=== PATIENT | male | born 1980 | race Caucasian/White ===

== ENCOUNTER 2016-12-03 17:51 | Emergency (ER) | payer BC, MEDICAID ==
[2016-12-03 18:26] LABS: URINE APPEARANCE CLEAR; URINE BILIRUBIN NEGATIVE (NEGATIVE); URINE BLOOD NEGATIVE (NEGATIVE); URINE COLOR YELLOW; URINE GLUCOSE (UA) NEGATIVE (NEGATIVE); URINE KETONE NEGATIVE (NEGATIVE); URINE LEUKOCYTE ESTERASE NEGATIVE (NEGATIVE); URINE NITRITE NEGATIVE (NEGATIVE); URINE PROTEIN NEGATIVE (NEGATIVE); URINE UROBILINOGEN 0.2 E.U./dL (0.20 - 1.00)
--- NOTE | 2016-12-03 18:43 | Emergency Department Record ---
History of Present Illness - General Chief Complaint: Fever Stated Complaint: FEVER,HAD AN INFECTION Time Seen by Provider: 12/03/16 18:03 Source: Patient Mode of Arrival: Ambulatory Limitations: No limitations - History of Present Illness Initial Comments: 36 yo male presents to ED with a CC of fever 102 this morning. Patient and family report a recent admission and treatment for "staph in nel urine" several days ago following an ICU stay at [facility] from 11/04/17-11/16/16. Patient was seen at [facility] originally for epilepsy, and underwent a sleep study that resulted in worsening of his seizures, intubation for several days. Patient reports body aches and headache symptoms, denies neck pain or stiffness, denies dysuria symptoms. Patient does report non-productive cough symptoms as well as "redness to the right eye". MD Complaint: Fever Onset/Timin -: Month(s) Maximum Temperature: 102.4 F Temperature Source: Oral Context: Other Associated Symptoms: Denies other symptoms Treatments Prior to Arrival: Other Treatment Prior to Arrival Comment:: Percocet at 1100 today - Related Data Home Medications Medication Instructions Recorded Confirmed Last Taken Divalproex Sodium [Depakote] 1,500 mg PO BID 10/18/15 12/03/16 12/03/16 Lisinopril 20 mg PO DAILY 10/18/15 12/03/16 12/03/16 Oxycodone HCl/Acetaminophen 10 mg PO Q4H 03/14/16 12/03/16 12/03/16 [Percocet 10mg/325mg] Cephalexin [Cephalexin] 500 mg PO QID 12/03/16 12/03/16 12/03/16 Lorazepam [Lorazepam] 1 mg PO ASDIR 12/03/16 12/03/16 12/03/16 Oxcarbazepine [Oxcarbazepine] 600 mg PO ASDIR 12/03/16 12/03/16 12/03/16 Quetiapine Fumarate [Quetiapine 50 mg PO ASDIR 12/03/16 12/03/16 12/03/16 Fumarate] Previous Rx's Medication Instructions Recorded Amoxicillin/Potassium Clav 2 tab PO BID #40 tab 12/03/16 [Augmentin 500Mg/125Mg] Doxycycline Hyclate [Doxycycline] 100 mg PO BID #20 cap 12/03/16 Allergies Allergy/AdvReac Type Severity Reaction Status Date / Time shrimp Allergy ANAPHYLAXIS Verified 12/03/16 18:07 Travel Screening - Travel/Exposure Within Last 30 Days Have you traveled within the last 30 days?: No - Travel/Exposure Within Last Year Have you traveled outside the [place] in the last year?: No - Additonal Travel Details Have you been exposed to anyone with a communicable illness?: No - Travel Symptoms Symptom Screening: None Review of Systems Constitutional: Reports: Fever, Malaise. Denies: Chills, Night sweats Eyes: Reports: Other (redness to the lateral aspect of the right eye). Denies: Eye discharge, Eye pain ENT: Denies: Congestion, Ear pain, Epistaxis Respiratory: Reports: Cough. Denies: Dyspnea Cardiovascular: Denies: Chest pain, Dyspnea on exertion Endocrine: Reports: Fatigue. Denies: Heat or cold intolerance Gastrointestinal: Denies: Abdominal pain, Nausea, Vomiting Genitourinary: Denies: Dysuria, Incontinence, Retention Musculoskeletal: Reports: Myalgia. Denies: Arthralgia, Back pain, Gout, Joint swelling Skin: Denies: Bruising, Change in color, Change in hair/nails Neurological: Reports: Headache. Denies: Abnormal gait, Confusion, Tingling, Tremors Psychiatric: Denies: Anxiety Hematological/Lymphatic: Denies: Anemia, Blood Clots Past Medical History - SOCIAL HISTORY Smoking Status: Current every day smoker Alcohol Use: None Drug Use: None - RESPIRATORY Hx Respiratory Disorders: No - CARDIOVASCULAR Hx Cardio Disorders: No - NEURO Hx Neuro Disorders: Yes Hx Brain Tumor: Yes Hx Seizures: Yes - GI Hx GI Disorders: No - Hx Genitourinary Disorders: No - ENDOCRINE Hx Endocrine Disorders: No - MUSCULOSKELETAL Hx Musculoskeletal Disorders: Yes Hx Back Injury: Yes - PSYCH Hx Psych Problems: Yes Hx Anxiety: Yes Hx Depression: Yes - HEMATOLOGY/ONCOLOGY Hx Hematology/Oncology Disorders: No Family Medical History Any Significant Family History?: Yes Hx Cancer: Grandparents Hx Diabetes: Mother Physical Exam - General General Appearance: Alert, Oriented x3, Cooperative, No acute distress Limitations: No limitations - Head Head exam: Atraumatic, Normocephalic, Normal inspection Head exam detail: negative: Abrasion, Contusion, Flowers's sign, General tenderness, Hematoma, Laceration - Eye Eye exam: Other (subconjunctival hemorrhage lateral aspect of the right eye). negative: Conjunctival injection, Periorbital swelling, Periorbital tenderness, Scleral icterus - ENT Ear exam: negative: Auricular hematoma, Auricular trauma Nasal Exam: negative: Active bleeding, Discharge, Dried blood, Foreign body Mouth exam: negative: Drooling, Laceration, Muffled voice, Tongue elevation - Neck Neck exam: Normal inspection. negative: Meningismus, Tenderness - Respiratory Respiratory exam: Normal lung sounds bilaterally. negative: Respiratory distress, Rhonchi, Stridor, Wheezes - Cardiovascular Cardiovascular Exam: Regular rate, Normal rhythm, Normal heart sounds - GI/Abdominal GI/Abdominal exam: Soft. negative: Rebound, Rigid, Tenderness - Rectal Rectal exam: Deferred - exam: Deferred - Extremities Extremities exam: Normal inspection. negative: Calf tenderness, Pedal edema, Tenderness - Back Back exam: Reports: Normal inspection. Denies: CVA tenderness (R), CVA tenderness (L), Paraspinal tenderness, Rash noted - Neurological Neurological exam: Alert, Normal gait, Oriented X3 - Psychiatric Psychiatric exam: Normal affect, Normal mood - Skin Skin exam: Normal color. negative: Abrasion Type of lesion: negative: abrasion Course Vital Signs 12/03/16 18:14 Temperature 98 F Pulse Rate 96 H Respiratory 18 Rate Blood Pressure 137/97 Pulse Ox 97 - Reevaluation(s) Reevaluation #1: 12/03/16 18:38 Records from [facility] reviewed 12/03/16: UA appears clear on exam Preliminary Blood Culture: No growth WBC 12.8, 81% Neutrophils Lactate 1.4 CXR: RUL concerning for pneumonia. Reevaluation #2: 12/03/16 18:47 [facility] records reviewed from 11/25/16, LP performed: 0 RBCs, 2 WBCs, negative culture. After records were reviewed, will administer IV antibiotics for HCAP and reassess. Reevaluation #3: 12/03/16 20:52 Patient reassessed, reports that his headache symptoms have resolved following Motrin administration. Patient's vitals are all within normal limits, and appears stable for discharge home for outpatient treatment of RUL pneumonia. Patient was instructed to return to ED for any worsening of his symptoms. Medical Decision Making - Lab Data Lab Results 12/03/16 Range/Units 18:20 Urine Color Yellow Urine Appearance Clear Urine pH 7.5 (5.0-8.0) Ur Specific Sanderson 1.020 (1.002-1.030) Urine Protein Negative (NEGATIVE) Urine Glucose (UA) Negative (NEGATIVE) Urine Ketones Negative (NEGATIVE) Urine Blood Negative (NEGATIVE) Urine Nitrite Negative (NEGATIVE) Urine Bilirubin Negative (NEGATIVE) Urine Urobilinogen 0.2 (0.20 - 1.00) E.U./dL Ur Leukocyte Esterase Negative (NEGATIVE) Disposition Disposition: Discharge Clinical Impression: HCAP (healthcare-associated pneumonia) Disposition: Home, Self-Care Condition: (2) Stable Instructions: Community-acquired Pneumonia (ED) Additional Instructions: Return to ED if your symptoms worsen or if you have any concerns. Doxycycline and Augmentin as directed. Follow-up with Dr. Swartz this week as scheduled. Prescriptions: Amoxicillin/Potassium Clav [Augmentin 500Mg/125Mg] 2 tab PO BID #40 tab Doxycycline Hyclate [Doxycycline] 100 mg PO BID #20 cap Forms: Patient Portal Access Time of Disposition: 20:53
[2016-12-03] MEDS: CEFTRIAXONE SODIUM 1 GM in 0.9 % SODIUM CHLORIDE 100ML 100 ML IVPB ONE (18:57)
[2016-12-03] MEDS: DIPHENHYDRAMINE HCL IV 50 MG/ML VIAL IVP ONE (18:58)
[2016-12-03] MEDS: AZITHROMYCIN 500 MG in 0.9 % SODIUM CHLORIDE 250ML 250 ML IVPB ONE (19:59)
[2016-12-03] MEDS: IBUPROFEN 400 MG TABLET PO ONE (20:00)
== END 2016-12-03 21:09 | disposition home or self-care (01) ==
LOC: ER 17:51
DX: J18.9 Pneumonia, unspecified organism (principal); R51 Headache; H11.31 Conjunctival hemorrhage, right eye; F17.210 Nicotine dependence, cigarettes, uncomplicated; G40.909 Epilepsy, unspecified, not intractable, without status epilepticus; Y95 Nosocomial condition
CPT/HCPCS: 81003; 96365; 96366; 96375; 99284; J0456; J1200; J7050

== ENCOUNTER 2017-05-24 14:29 | Emergency (ER) | payer BC, MEDICAID ==
[2017-05-24] MEDS ORDERED: 0.9 % SODIUM CHLORIDE 1,000 ML BAG IV ONE (14:40)
--- NOTE | 2017-05-24 14:48 | Emergency Department Record ---
History of Present Illness - General Chief Complaint: Ankle/Foot Injury Stated Complaint: R FOOT INJURY Time Seen by Provider: 05/24/17 14:34 Source: Patient Mode of Arrival: Ambulatory Limitations: No limitations - History of Present Illness Initial Comments: 37 yo male presents with right foot pain for one week. He was trying to "save" a cat and twisted the foot. He has had persistent pain, swelling, bruising since then. Additionally he has had diarrhea and is concerned that he is dehydrated. He has a long complex history of seizures. He was recently at [facility] and had medication changes. The side effect seems to be loose stools. He requests hydration. His last significant seizure was beginning of the year. He has had small seizures periodically. No vomiting. No fever. The pain in the foot is mid to distal foot. MD Complaint: Foot injury, Other Onset/Timin -: Week(s) Injury: Foot: Right Type of Injury: Inversion Place: Street/outdoors Severity: Mild Severity scale (1-10): 3 Improves With: Cold therapy Worsens With: Weight bearing Context: Fall Associated Symptoms: Swelling Treatments Prior to Arrival: Other - Related Data Home Medications Medication Instructions Recorded Confirmed Last Taken Divalproex Sodium [Depakote] 2,500 mg PO DAILY 10/18/15 05/24/17 12/03/16 Lisinopril 20 mg PO BID 10/18/15 05/24/17 12/03/16 Lorazepam [Lorazepam] 1 mg PO TID 12/03/16 05/24/17 12/03/16 Oxcarbazepine [Oxcarbazepine] 600 mg PO BID 12/03/16 05/24/17 12/03/16 Quetiapine Fumarate [Quetiapine 100 mg PO ASDIR 12/03/16 05/24/17 12/03/16 Fumarate] Clonidine HCl 0.1 mg PO BID 05/24/17 05/24/17 Unknown Duloxetine HCl [Cymbalta] 60 mg PO DAILY 05/24/17 05/24/17 Unknown Lacosamide [Vimpat] 50 mg PO BID 05/24/17 05/24/17 Unknown Magnesium 400 mg PO DAILY 05/24/17 05/24/17 Unknown Multivitamin [Multi-Vitamin Daily] 1 each PO DAILY 05/24/17 05/24/17 Unknown Naproxen 500 mg PO ASDIR 05/24/17 05/24/17 Unknown Sumatriptan Succinate [Imitrex] 100 mg PO BID 05/24/17 05/24/17 Unknown Trazodone HCl 50 mg PO DAILY 05/24/17 05/24/17 Unknown Allergies Allergy/AdvReac Type Severity Reaction Status Date / Time shrimp Allergy ANAPHYLAXIS Verified 12/03/16 18:07 Travel Screening - Travel/Exposure Within Last 30 Days Have you traveled within the last 30 days?: No Review of Systems Constitutional: Denies: Chills, Fever, Weakness Eyes: Denies: Eye discharge ENT: Denies: Congestion, Throat pain Respiratory: Denies: Cough, Dyspnea Cardiovascular: Denies: Chest pain, Syncope Endocrine: Denies: Fatigue Gastrointestinal: Reports: Diarrhea. Denies: Abdominal pain, Nausea, Vomiting Genitourinary: Denies: Dysuria, Frequency, Hematuria Musculoskeletal: Reports: As per HPI, Arthralgia, Joint swelling. Denies: Back pain, Myalgia Skin: Reports: As per HPI, Bruising Neurological: Reports: Seizure. Denies: Headache Psychiatric: Denies: Anxiety Hematological/Lymphatic: Denies: Blood Clots, Easy bleeding, Easy bruising, Swollen glands Past Medical History - SOCIAL HISTORY Smoking Status: Current every day smoker Alcohol Use: None Drug Use: None - RESPIRATORY Hx Respiratory Disorders: No - CARDIOVASCULAR Hx Cardio Disorders: No Hx Hypertension: Yes - NEURO Hx Neuro Disorders: Yes Hx Brain Tumor: Yes Hx Seizures: Yes - GI Hx GI Disorders: No - Hx Genitourinary Disorders: No - ENDOCRINE Hx Endocrine Disorders: No - MUSCULOSKELETAL Hx Musculoskeletal Disorders: Yes Hx Back Injury: Yes - PSYCH Hx Psych Problems: Yes Hx Anxiety: Yes Hx Depression: Yes - HEMATOLOGY/ONCOLOGY Hx Hematology/Oncology Disorders: No Family Medical History Any Significant Family History?: Yes Hx Cancer: Grandparents Hx Diabetes: Mother Physical Exam - General General Appearance: Alert, Oriented x3, Cooperative, No acute distress Limitations: No limitations - Head Head exam: Atraumatic - Eye Eye exam: Normal appearance - ENT ENT exam: Normal exam Ear exam: Normal external inspection Nasal Exam: Normal inspection Mouth exam: Normal external inspection - Neck Neck exam: Normal inspection - Cardiovascular Cardiovascular Exam: Regular rate, Normal rhythm, Normal heart sounds Peripheral Pulses: 1+: Dorsalis Pedis (R) - GI/Abdominal GI/Abdominal exam: Soft. negative: Distended, Tenderness - exam: Deferred - Extremities Extremities exam: Full ROM, Normal capillary refill, Tenderness. negative: Normal inspection, Calf tenderness, Pedal edema Image of Feet: 1 - mid foot tenderness, slight bruising and swelling, no deformity, no lateral or medial malleolar tenderness or swelling - Back Back exam: Denies: CVA tenderness (R), CVA tenderness (L) - Neurological Neurological exam: Alert, Normal gait, Oriented X3, Reflexes normal - Psychiatric Psychiatric exam: Normal affect, Normal mood. negative: Agitated, Anxious - Skin Skin exam: Dry, Intact, Normal color, Warm Course Vital Signs 05/24/17 14:37 Temperature 98.8 F Pulse Rate 83 Respiratory 20 Rate Blood Pressure 151/118 Pulse Ox 97 - Reevaluation(s) Reevaluation #1: The vitals were reviewed The patient is persistent with his concern of dehydration so labs an IVF ordered. 05/24/17 14:50 Reevaluation #2: The labs were reviewed. Labs were in the normal range. 05/24/17 15:42 05/24/17 16:16 Prelim XR reviewed by me No displaced fx or dislocation Medical Decision Making - Lab Data Result diagrams: 05/24/17 15:10 Disposition Disposition: Discharge Clinical Impression: Dehydration Sprain of foot, right Qualifiers: Encounter type: initial encounter Qualified Code(s): S93.601A - Unspecified sprain of right foot, initial encounter Disposition: Home, Self-Care Condition: (1) Good Instructions: Foot Sprain (ED) Additional Instructions: Follow up this week with your family doctor for a recheck of this ER visit Forms: Patient Portal Access Time of Disposition: :
[2017-05-24] MEDS ORDERED: DIPHENHYDRAMINE HCL IV 50 MG/ML VIAL IVP ONE (14:56)
[2017-05-24 15:33] LABS: ALB/GLOB RATIO 1.5 (1.1-1.8); ALBUMIN 4.5 gm/dL (3.5-5.0); ALKALINE PHOSPHATASE 55 U/L (38-126); ALT/SGPT 19 U/L (21-72); ANION GAP 9.3 (7-16); AST/SGOT 21 U/L (17-59); BILIRUBIN,TOTAL 0.31 mg/dL (0.2-1.3); BLOOD UREA NITROGEN 12 mg/dL (9-20); CARBON DIOXIDE 24.7 mmol/L (22-30); CREATININE 0.8 mg/dL (0.66-1.25); EST GLOMERULAR FILTRATION RATE > 60 ml/min; GLUCOSE,RANDOM 99 mg/dL (70-110); TOTAL PROTEIN 7.5 gm/dL (6.3-8.2)
--- NOTE | 2017-05-24 22:11 | RADIOLOGY REPORT ---
EXAM: FOOT, RIGHT 3 VIEWS HISTORY: INJURY. TECHNIQUE: Three views of the right foot were performed. FINDINGS: No evidence of fracture or dislocation. No lytic or blastic lesion. No calcaneal spur. IMPRESSION: NEGATIVE RIGHT FOOT EXAMINATION. JOB NUMBER: [id number] MTDD
== END 2017-05-24 16:26 | disposition home or self-care (01) ==
LOC: ER 14:29
DX: S93.601A Unspecified sprain of right foot, initial encounter (principal); E86.0 Dehydration; R19.7 Diarrhea, unspecified; X50.1XXA Overexertion from prolonged static or awkward postures, initial encounter; Y93.K9 Activity, other involving animal care; Y92.410 Unspecified street and highway as the place of occurrence of the external cause
CPT/HCPCS: 80053; 83735; 96361; 96374; 99284; J1200; J7030

== ENCOUNTER 2017-10-31 17:28 | Emergency (ER) | payer MEDICARE, BC, MEDICAID ==
[2017-10-31] MEDS ORDERED: AZITHROMYCIN 500 MG in 0.9 % SODIUM CHLORIDE 250ML 250 ML IVPB ONE (18:16)
[2017-10-31] MEDS ORDERED: 0.9 % SODIUM CHLORIDE 1,000 ML BAG IV ONE ×4 (18:16→22:56)
[2017-10-31] MEDS ORDERED: CEFTRIAXONE SODIUM 2 GM in 0.9 % SODIUM CHLORIDE 100ML 100 ML IV ONE (18:16)
--- NOTE | 2017-10-31 18:19 | Emergency Department Record ---
History of Present Illness - General Chief Complaint: Fever Stated Complaint: HIGH FEVER,DISORIENTED Time Seen by Provider: 10/31/17 18:15 Source: Family (History per mother) Mode of Arrival: Ambulatory - History of Present Illness Initial Comments: Mother reports that her son has a history of a brain tumor. diagnosed in 2014. which was surgically removed and is being followed at [facility], and [facility]. His PCP is Kimberly Swartz and Dr. Campos manages his pain. His last head CT was less than a year ago per mom. He has seizures for which he takes 500 mg depakote 5 times daily, as well as oxcarbazine. His last seizure was a week ago. The following day he went to [place] (). When he returned, 08-26, he had had a day of increased sleepiness, a brown productive cough, a fever to 103 yesterday (10-30-17), and nearly 101 today (10-31), which responded to tylenol, He is continuing to not feel well. He complains of his head hurting over his scar, which "he has said that since his brain surgery," per mom. He denies stiff neck, nausea, vomiting, diarrhea, rashes. trauma. He also has right knee and right hip pain, neither of which are new. His right knee is scheduled for elective surgery with Dr. Holguin on . Upon arrival here he was having a productive cough, GABRIELLE, increased sleepiness. He was borderline tachycardic with a BP in the 90's systolic, and biox RA 88%. Complaint: Fever, Malaise Onset/Timin -: Days(s) Maximum Temperature: 103.8 F Temperature Source: Oral Associated Symptoms: Cough Treatments Prior to Arrival: None - Related Data Allergies Allergy/AdvReac Type Severity Reaction Status Date / Time shrimp Allergy ANAPHYLAXIS Verified 12/03/16 18:07 Travel Screening - Travel/Exposure Within Last 30 Days Have you traveled within the last 30 days?: Yes Location Detail:: [place] - Travel/Exposure Within Last Year Have you traveled outside the [place] in the last year?: No - Travel Symptoms Symptom Screening: Fever (Subjective) Review of Systems Reviewed: No additional complaints except as noted below Constitutional: Reports: As per HPI. Denies: Chills, Fever, Malaise, Night sweats, Weakness, Weight change Eyes: Reports: As per HPI. Denies: Eye discharge, Eye pain, Photophobia, Vision change ENT: Reports: As per HPI. Denies: Congestion, Dental pain, Ear pain, Epistaxis , Hearing loss, Throat pain Respiratory: Reports: As per HPI. Denies: Cough, Dyspnea, Hemoptysis, Stridor, Wheezes Cardiovascular: Reports: As per HPI. Denies: Arrhythmia, Chest pain, Dyspnea on exertion, Edema, Murmurs, Orthopnea, Palpitations, Paroxysmal nocturnal dyspnea, Rheumatic Fever, Syncope Endocrine: Reports: As per HPI. Denies: Fatigue, Heat or cold intolerance, Polydipsia, Polyuria Gastrointestinal: Reports: As per HPI. Denies: Abdominal pain, Constipation, Diarrhea, Hematemesis, Hematochezia, Melena, Nausea, Vomiting Genitourinary: Reports: As per HPI. Denies: Dysuria, Frequency, Hematuria, Incontinence, Retention, Testicular pain, Testicular mass, Urgency Musculoskeletal: Reports: As per HPI. Denies: Arthralgia, Back pain, Gout, Joint swelling, Myalgia, Neck pain Skin: Reports: As per HPI. Denies: Bruising, Change in color, Change in hair/ nails, Lesions, Pruritus, Rash Neurological: Reports: As per HPI. Denies: Abnormal gait, Confusion, Headache, Numbness, Paresthesias, Seizure, Tingling, Tremors, Vertigo, Weakness Psychiatric: Reports: As per HPI. Denies: Anxiety, Auditory hallucinations, Depression, Homicidal thoughts, Suicidal thoughts, Visual hallucinations Hematological/Lymphatic: Reports: As per HPI. Denies: Anemia, Blood Clots, Easy bleeding, Easy bruising, Swollen glands Past Medical History - SOCIAL HISTORY Smoking Status: Current every day smoker Alcohol Use: None Drug Use: None - RESPIRATORY Hx Respiratory Disorders: Yes Hx Pneumonia: Yes - CARDIOVASCULAR Hx Cardio Disorders: Yes Hx Hypertension: Yes - NEURO Hx Neuro Disorders: Yes Hx Brain Tumor: Yes Hx Seizures: Yes - GI Hx GI Disorders: No - Hx Genitourinary Disorders: No - ENDOCRINE Hx Endocrine Disorders: No - MUSCULOSKELETAL Hx Musculoskeletal Disorders: Yes Hx Back Injury: Yes - PSYCH Hx Psych Problems: Yes Hx Anxiety: Yes Hx Depression: Yes - HEMATOLOGY/ONCOLOGY Hx Hematology/Oncology Disorders: No Family Medical History Any Significant Family History?: Yes Hx Cancer: Grandparents Hx Diabetes: Mother Physical Exam - General General Appearance: Cooperative, No acute distress, Mild distress Limitations: Altered mental status (sleeping/intermittent snoring, easily aroused, answers questions appropriately, then falls back asleep.) - Head Head exam: Normal inspection Head exam detail: Other (healed surgical scar to scalp) - Eye Eye exam: Normal appearance, PERRL, EOMI Pupils: Normal accommodation, Miosis (2-3 mm = bilaterally) - ENT ENT exam: Normal exam, Mucous membranes dry, Normal external ear exam, Normal orophraynx, TM's normal bilaterally Ear exam: Normal external inspection. negative: External canal tenderness Nasal Exam: Normal inspection. negative: Discharge, Sinus tenderness Mouth exam: Normal external inspection, Tongue normal Teeth exam: Normal inspection. negative: Dental caries Throat exam: Normal inspection. negative: Tonsillar erythema, Tonsillar exudate - Neck Neck exam: Normal inspection, Full ROM, Other (flexes chin to chest easily). negative: Lymphadenopathy, Meningismus, Tenderness - Respiratory Respiratory exam: Normal lung sounds bilaterally. negative: Respiratory distress - Cardiovascular Cardiovascular Exam: Normal rhythm, Normal heart sounds, Tachycardia - GI/Abdominal GI/Abdominal exam: Soft, Normal bowel sounds. negative: Tenderness - Rectal Rectal exam: Deferred - exam: Deferred - Extremities Extremities exam: Normal inspection, Full ROM, Normal capillary refill, Other ( chronic right knee pain, unchanged from previous baselline ). negative: Calf tenderness, Pedal edema, Tenderness - Back Back exam: Reports: Normal inspection, Full ROM. Denies: Muscle spasm, Rash noted, Tenderness - Neurological Neurological exam: Altered (sleepy but follows command, sits up on command.), CN II-XII intact, Normal gait, Oriented X3, Reflexes normal. negative: Motor sensory deficit - Psychiatric Psychiatric exam: Flat affect - Skin Skin exam: Dry, Intact, Normal color, Warm. negative: Diaphoretic Type of lesion: negative: Rash Course Vital Signs 10/31/17 17:57 Temperature 98.8 F Pulse Rate [ 103 H Pulse Ox Probe] Respiratory 18 Rate Blood Pressure 92/58 [Left Arm] Pulse Ox 88 L - Reevaluation(s) Reevaluation #1: Patient is sedated and biox is 88 with a poor wave pattern. Patient asked to breathe deeply several times which brought him to 90% but provoked coughing spasms with green sputum. 10/31/17 20:34 Reevaluation #2: Discussed results with parents and need for admission. They request he be admitted here and not transferred. WIll reassess status of vitals after adequate hydration and UA obtained. 10/31/17 20:40 10/31/17 20:41 Reevaluation #3: Awaiting fluids to infuse. After 2 liters his BP is now 103 systolic. No urine output yet. Will admit when UA produced with results returned. Brown green sputum induced and sent to lab. 10/31/17 21:49 Reevaluation #4: Patient stood up at bedside to urinate and his oxygen sats dropped to 81%. Continuous aerosol ordered, respiratory at bedside. Vitals are improved from initial ones with pulse 110, RR 28 108/72 85% on 6 liters, improves only slightly with instructions to inhale deeply. Patient remains very sleepy but cooperative. 10/31/17 22:47 10/31/17 23:29 Patient was given continuous nebulizer for one hour. His urine drug screen returned positive for opiates, oxycodoen, TCA, amphetamines, methamphetamines, benzos, cocaine, and cannabis. New possibility of more complicated overdose rather than just elevated vaproic acid levels. Will arrange for transfer. Parents in agreement to transfer to [facility]. Biox now 94%, pulse 119, 115/92. Reevaluation #5: PRICILA Oropeza Pot Fisher at [facility] who accepts patient in transfer as a direct admit. 10/31/17 23:47 Medical Decision Making - Management Options MDM Management: Additional Work-up Planned (e.g. ADM/Transfer/OP Study) ( Transfer) - Data Complexity MDM Data: Labs Ordered and/or Reviewed (UDS positive for opiates, oxycodone, TCA , amphetamin, methamphetamine, benzos, cocaine, cannabis), X-Ray Ordered and/or Reviewed (CXR two view: Bilateral lower lobe pneumonia, right greater than left.Per Radiologist.), EKG Ordered and/or Reviewed (EKG) - Lab Data Result diagrams: 10/31/17 18:00 10/31/17 18:00 - EKG Data -: EKG Interpreted by Me EKG: No Acute Changes (Sinus tach at 100, no acute abnormality.) - Radiology Data Radiology results: Report reviewed, Image reviewed Disposition Disposition: Transfer Clinical Impression: Hypoxemia, Dehydration, Elevated serum creatinine, Poly-drug misuser Valproic acid toxicity Qualifiers: Encounter type: initial encounter Injury intent: accidental or unintentional Qualified Code(s): T42.6X1A - Poisoning by other antiepileptic and sedative- hypnotic drugs, accidental (unintentional), initial encounter Bilateral pneumonia Qualifiers: Pneumonia type: due to unspecified organism Lung location: lower lobe of lung Qualified Code(s): J18.9 - Pneumonia, unspecified organism Disposition: Acute [facility] Transfer Decision to Admit: Admit from ER Decision to Admit Date: 10/31/17 Decision to Admit Time: 23:50 Transfer To: [facility] ICU Reason For Transfer: Respiratory distress, pneumonia, hypoxemia, polydrug overuse, seizure histo Accepting Physician: Dr. Oropeza Time Discussed w/Accepting Physician: 23:50 Condition: (5) Critical Forms: Patient Portal Access Quality - Quality Measures Quality Measures: N/A - Blood Pressure Screening Does Patient Have Any of the Following: No Blood Pressure Classification: Pre-Hypertensive BP Reading Systolic Measurement: 136 Diastolic Measurement: 87 Screening for High Blood Pressure: < Normal BP, F/U Not Required > [G8783]
[2017-10-31] MEDS ORDERED: IPRATROPIUM/ALBUTEROL (0.5MG/3MG) NEB INH ONE (18:24)
[2017-10-31 18:51] LABS: BASO % 0.1 % (0-6); EOS % 0.1 % (0-6); LYMPH % 9.3 % (16-45); MEAN CELL VOLUME 94.3 fl (81-97); MEAN CORPUSCULAR HGB CONC 34.1 g/dl (32-36); MEAN PLATELET VOLUME 10.2 fl (7.4-10.4); MONO % 5.2 % (0-9); PLATELET COUNT 95 K/uL (130-400); RED BLOOD COUNT 4.35 M/uL (4.40-5.70); RED CELL DISTRIBUTION WIDTH 13.2 % (11.5-14.5); WHITE BLOOD COUNT W/O DIFF 8.9 K/uL (4.2-12.2)
[2017-10-31 18:52] LABS: MEAN CORPUSCULAR HEMOGLOBIN 32.1 pg (27-33)
[2017-10-31 19:21] LABS: LACTIC ACID 0.8 mmol/L (0.5-2.2)
[2017-10-31 19:35] LABS: ALB/GLOB RATIO 1.4 (1.1-1.8); ALBUMIN 4.5 g/dL (4.0-5.0); BILIRUBIN,TOTAL 0.3 mg/dL (0.2-1.0); TOTAL PROTEIN 7.8 g/dL (6.6-8.7)
[2017-10-31] MEDS ORDERED: ALBUTEROL SULFATE (0.083%) 2.5 MG/3 ML NEB INH ONE (20:36)
[2017-10-31 21:04] LABS: ARTERIAL BLD GAS O2 SATURATION 95.8 % (95-98); ARTERIAL BLOOD GAS BASE EXCESS -1.9 mmol/L (-2 - 3); ARTERIAL BLOOD GAS HCO3 23.4 mmol/L (18-23); ARTERIAL BLOOD GAS PCO2 44.8 mmHg (35-48); ARTERIAL BLOOD GAS pH 7.34 (7.35-7.45); CARBOXYHEMOGLOBIN 2.1 % (0-1.5); METHEMOGLOBIN 0.1 % (0.0-1.5); O2 HEMOGLOBIN 93.7 % vol (94-99); TOTAL HEMOGLOBIN 11.9 g/dl (14-18)
[2017-10-31 21:06] LABS: ALLEN TEST NOT DONE
[2017-10-31 22:41] LABS: URINE APPEARANCE CLEAR; URINE BILIRUBIN NEGATIVE (NEGATIVE); URINE BLOOD NEGATIVE (NEGATIVE); URINE COLOR YELLOW; URINE GLUCOSE (UA) NEGATIVE (NEGATIVE); URINE KETONE TRACE (NEGATIVE); URINE LEUKOCYTE ESTERASE NEGATIVE (NEGATIVE); URINE NITRITE NEGATIVE (NEGATIVE); URINE PROTEIN NEGATIVE (NEGATIVE); URINE UROBILINOGEN 0.2 E.U./dL (0.20 - 1.00)
[2017-10-31] MEDS ORDERED: ALBUTEROL SULFATE (0.083%) 2.5 MG/3 ML NEB INH SCH (22:45)
[2017-10-31] MEDS ORDERED: METHYLPREDNISOLONE PF 125MG/VIAL IVP ONE (22:50)
[2017-10-31] MEDS ORDERED: ONDANSETRON 4 MG ODT TABLET SL ONE (22:56)
[2017-10-31 23:08] LABS: BARBITURATE SCREEN URINE NOT DETECTED; BENZODIAZEPINE SCREEN URINE DETECTED; METHADONE SCREEN URINE NOT DETECTED; THC SCREEN URINE DETECTED; TRICYCLIC ANTIDEPRESSANT SCRN DETECTED
[2017-10-31 23:09] LABS: AMPHETAMINE SCREEN URINE DETECTED; COCAINE SCREEN URINE DETECTED; METHAMPHETAMINE SCREEN DETECTED; OPIATE SCREEN URINE DETECTED; OXYCODONE SCREEN URINE DETECTED; PHENCYCLIDINE SCREEN URINE NOT DETECTED; PROPOXYPHENE SCREEN URINE NOT DETECTED
--- NOTE | 2017-10-31 23:17 | RADIOLOGY REPORT ---
EXAM: CHEST 2 VIEWS HISTORY: PRODUCTIVE COUGH FOR THREE DAYS. TECHNIQUE: Upright AP and lateral views of the chest. COMPARISON: Single-view chest dated 03/14/16. FINDINGS: The lung volumes are low. There are alveolar opacities in each lung posteriorly suspicious for pneumonia. No definite pleural or pericardial effusion. The heart is at the upper limits of normal in size. No pulmonary venous hypertension is seen. No destructive bone lesion. No pneumothorax. IMPRESSION: 1. ALVEOLAR OPACITIES POSTERIORLY IN EACH LUNG BASE SUSPICIOUS FOR PNEUMONIA. 2. MILD ELEVATION OF THE RIGHT HEMIDIAPHRAGM REDEMONSTRATED. JOB NUMBER: [id number] [facility]TDD
--- NOTE | 2017-10-31 23:25 | CT SCAN REPORT ---
EXAM: CT SCAN HEAD WO CONTRAST HISTORY: HEADACHES AND FEVER. TECHNIQUE: Routine noncontrast CT examination of the head. COMPARISON: None. FINDINGS: The ventricles and subarachnoid spaces are normal in size. No area of abnormally increased or decreased attenuation is noted throughout the brain substance. No abnormal extraaxial fluid collection is seen. Minor mucosal thickening is scattered within the maxillary sinuses, multiple bilateral ethmoid air cells, the inferior aspects of the frontal sinuses, and the anterior aspects of the sphenoid sinuses. The mastoid air cells are clear. The orbits as visualized are unremarkable. IMPRESSION: 1. NO INTRACRANIAL ABNORMALITY IDENTIFIED. 2. MUCOSAL THICKENING IN THE MAJORITY OF PARANASAL SINUSES CONSISTENT WITH MILD CHRONIC SINUSITIS. JOB NUMBER: [id number] [facility]
[2017-10-31 23:33] LABS: ACETAMINOPHEN 20.3 ug/mL (10.0-30.0); ALCOHOL < 0.010 g/dL (0-0.010); SALICYLATE < 0.3 mg/dL (2.8-20)
== END 2017-11-01 01:43 | disposition short-term general hospital (02) ==
LOC: ER 17:28
DX: T42.6X1A Poisoning by other antiepileptic and sedative-hypnotic drugs, accidental (unintentional), initial encounter (principal); R09.02 Hypoxemia; J18.9 Pneumonia, unspecified organism; R79.89 Other specified abnormal findings of blood chemistry; E86.0 Dehydration; M25.561 Pain in right knee; R53.81 Other malaise; G40.909 Epilepsy, unspecified, not intractable, without status epilepticus; I10 Essential (primary) hypertension; F17.210 Nicotine dependence, cigarettes, uncomplicated
CPT/HCPCS: 36600; 70450; 71020; 80053; 80164; 80305; 80320; 80329; 81003; 82375; 82803; 83605; 85027; 85379; 93005; 93010; 94640; 94644; 96361; 96365; 96366; 96375; 99285; J0456; J2930; J7050; J7613

== ENCOUNTER 2018-08-04 23:26 | Emergency (ER) | payer BC ==
[2018-08-04] MEDS ORDERED: CEFTRIAXONE SODIUM 1 GM in 0.9 % SODIUM CHLORIDE 100ML 100 ML IVPB ONE (23:52)
--- NOTE | 2018-08-05 00:06 | Emergency Department Record ---
History of Present Illness - General Chief Complaint: Ankle/Foot Injury Stated Complaint: RIGHT BIG TOE INFECTION Time Seen by Provider: 08/04/18 23:43 Source: Patient Mode of Arrival: Ambulatory Limitations: No limitations - History of Present Illness Initial Comments: pt has cellulitis of foot. pt saw dr kan and was given a shot of rocephin and a rx for bactrim which he has not started. he comes in tonight because it is worse with redness spreading and streak going up ankle MD Complaint: Other Onset/Timin -: Days(s) Injury: Foot: Right Severity: Moderate Severity scale (1-10): 6 Improves With: Nothing Worsens With: Movement, Weight bearing Associated Symptoms: Swelling Treatments Prior to Arrival: Other - Related Data Allergies Allergy/AdvReac Type Severity Reaction Status Date / Time shrimp Allergy ANAPHYLAXIS Verified 12/03/16 18:07 Travel Screening - Travel/Exposure Within Last 30 Days Have you traveled within the last 30 days?: No - Travel/Exposure Within Last Year Have you traveled outside the [place] in the last year?: No - Additonal Travel Details Have you been exposed to anyone with a communicable illness?: No - Travel Symptoms Symptom Screening: None Review of Systems Reviewed: No additional complaints except as noted below Constitutional: Reports: As per HPI. Denies: Chills, Fever, Malaise, Night sweats, Weakness, Weight change Eyes: Reports: As per HPI. Denies: Eye discharge, Eye pain, Photophobia, Vision change ENT: Reports: As per HPI. Denies: Congestion, Dental pain, Ear pain, Epistaxis , Hearing loss, Throat pain Respiratory: Reports: As per HPI. Denies: Cough, Dyspnea, Hemoptysis, Stridor, Wheezes Cardiovascular: Reports: As per HPI. Denies: Arrhythmia, Chest pain, Dyspnea on exertion, Edema, Murmurs, Orthopnea, Palpitations, Paroxysmal nocturnal dyspnea, Rheumatic Fever, Syncope Endocrine: Reports: As per HPI. Denies: Fatigue, Heat or cold intolerance, Polydipsia, Polyuria Gastrointestinal: Reports: As per HPI. Denies: Abdominal pain, Constipation, Diarrhea, Hematemesis, Hematochezia, Melena, Nausea, Vomiting Genitourinary: Reports: As per HPI. Denies: Dysuria, Frequency, Hematuria, Incontinence, Retention, Testicular pain, Testicular mass, Urgency Musculoskeletal: Reports: As per HPI. Denies: Arthralgia, Back pain, Gout, Joint swelling, Myalgia, Neck pain Skin: Reports: As per HPI, Rash. Denies: Bruising, Change in color, Change in hair/nails, Lesions, Pruritus Neurological: Reports: As per HPI. Denies: Abnormal gait, Confusion, Headache, Numbness, Paresthesias, Seizure, Tingling, Tremors, Vertigo, Weakness Psychiatric: Reports: As per HPI. Denies: Anxiety, Auditory hallucinations, Depression, Homicidal thoughts, Suicidal thoughts, Visual hallucinations Hematological/Lymphatic: Reports: As per HPI. Denies: Anemia, Blood Clots, Easy bleeding, Easy bruising, Swollen glands Past Medical History - SOCIAL HISTORY Smoking Status: Current every day smoker Alcohol Use: None Drug Use: Occasional Drug Use Detail:: Marijuana - RESPIRATORY Hx Respiratory Disorders: Yes Hx Pneumonia: Yes - CARDIOVASCULAR Hx Cardio Disorders: Yes Hx Hypertension: Yes - NEURO Hx Neuro Disorders: Yes Hx Brain Tumor: Yes Hx Seizures: Yes - GI Hx GI Disorders: No - Hx Genitourinary Disorders: No - ENDOCRINE Hx Endocrine Disorders: No - MUSCULOSKELETAL Hx Musculoskeletal Disorders: Yes Hx Back Injury: Yes - PSYCH Hx Psych Problems: Yes Hx Anxiety: Yes Hx Depression: Yes - HEMATOLOGY/ONCOLOGY Hx Hematology/Oncology Disorders: No Family Medical History Any Significant Family History?: Yes Hx Cancer: Grandparents Hx Diabetes: Mother Physical Exam - General General Appearance: Alert, Oriented x3, Cooperative, Mild distress - Head Head exam: Normal inspection - Eye Eye exam: Normal appearance, PERRL, EOMI Pupils: Normal accommodation - ENT ENT exam: Normal exam, Mucous membranes moist, Normal external ear exam, Normal orophraynx Ear exam: Normal external inspection. negative: External canal tenderness Nasal Exam: Normal inspection. negative: Discharge, Sinus tenderness Mouth exam: Normal external inspection, Tongue normal Teeth exam: Normal inspection. negative: Dental caries Throat exam: Normal inspection. negative: Tonsillar erythema, Tonsillar exudate - Neck Neck exam: Normal inspection, Full ROM. negative: Tenderness - Respiratory Respiratory exam: Normal lung sounds bilaterally. negative: Respiratory distress - Cardiovascular Cardiovascular Exam: Normal rhythm, Normal heart sounds, Tachycardia - GI/Abdominal GI/Abdominal exam: Soft, Normal bowel sounds. negative: Tenderness - Rectal Rectal exam: Deferred - exam: Deferred - Extremities Extremities exam: Normal inspection, Full ROM, Normal capillary refill, Tenderness Image of Feet: 1 - erythema, swelling w streak extending to ankle - Back Back exam: Reports: Normal inspection, Full ROM. Denies: Muscle spasm, Rash noted, Tenderness - Neurological Neurological exam: Alert, CN II-XII intact, Normal gait, Oriented X3 - Psychiatric Psychiatric exam: Normal affect, Normal mood - Skin Skin exam: Dry, Intact, Normal color, Warm Course Vital Signs 08/04/18 23:33 Temperature 98.8 F Pulse Rate [ 123 H Pulse Ox Probe] Respiratory 20 Rate Blood Pressure 143/114 [Left Arm] Pulse Ox 96 Medical Decision Making - Lab Data Result diagrams: 08/04/18 23:45 Disposition Disposition: Discharge Clinical Impression: Cellulitis Qualifiers: Site of cellulitis: extremity Site of cellulitis of extremity: lower extremity Laterality: right Qualified Code(s): L03.115 - Cellulitis of right lower limb Disposition: Home, Self-Care Condition: (1) Good Instructions: Cellulitis (ED) Additional Instructions: recheck in 12-24hrs. follow up with family doctor and with orthopedic doctor. return sooner if worse Forms: Patient Portal Access Quality - Quality Measures Quality Measures: N/A - Blood Pressure Screening Does Patient Have Any of the Following: Active Dx of HTN Blood Pressure Classification: Hypertensive Reading Systolic Measurement: 143 Diastolic Measurement: 114 Screening for High Blood Pressure: Patient Exclusion, Hx of HTN [G9744]
[2018-08-05 00:13] LABS: BASO % 0.3 % (0-6); EOS % 2.4 % (0-6); GRAN % 61.1 % (47-80); HEMATOCRIT 46.3 % (42.0-52.0); HEMOGLOBIN 16.1 gm/dl (14.0-18.0); LYMPH % 28.6 % (16-45); MEAN CELL VOLUME 93.2 fl (81-97); MEAN CORPUSCULAR HEMOGLOBIN 32.4 pg (27-33); MEAN CORPUSCULAR HGB CONC 34.8 g/dl (32-36); MONO % 7.6 % (0-9); PLATELET COUNT 190 K/uL (130-400); RED BLOOD COUNT 4.97 M/uL (4.40-5.70); RED CELL DISTRIBUTION WIDTH 12.9 % (11.5-14.5); WHITE BLOOD COUNT W/O DIFF 6.6 K/uL (4.2-12.2)
[2018-08-05] MEDS ORDERED: DIPHENHYDRAMINE HCL 25 MG CAPSULE PO ONE (00:14)
== END 2018-08-05 00:41 | disposition home or self-care (01) ==
LOC: ER 23:26
DX: L03.115 Cellulitis of right lower limb (principal); F17.210 Nicotine dependence, cigarettes, uncomplicated
CPT/HCPCS: 85025; 96365; 99284

== ENCOUNTER 2018-08-05 12:02 | Emergency (ER) | payer BC ==
[2018-08-05] MEDS ORDERED: CEFTRIAXONE SODIUM 1 GM in 0.9 % SODIUM CHLORIDE 100ML 100 ML IVPB ONE (12:39)
[2018-08-05] MEDS ORDERED: ACETAMINOPHEN 1,000 MG/100 ML BTL IVPB ONE (12:39)
[2018-08-05] MEDS ORDERED: LORAZEPAM 2 MG/ML VIAL IV ONE (12:41)
[2018-08-05 12:56] LABS: BASO % 0.3 % (0-6); GRAN % 71.8 % (47-80); HEMATOCRIT 45.8 % (42.0-52.0); HEMOGLOBIN 15.3 gm/dl (14.0-18.0); LYMPH % 15.1 % (16-45); MEAN CELL VOLUME 94.6 fl (81-97); MEAN CORPUSCULAR HEMOGLOBIN 31.6 pg (27-33); MEAN CORPUSCULAR HGB CONC 33.4 g/dl (32-36); MEAN PLATELET VOLUME 9.7 fl (7.4-10.4); MONO % 10.8 % (0-9); PLATELET COUNT 152 K/uL (130-400); RED BLOOD COUNT 4.84 M/uL (4.40-5.70); RED CELL DISTRIBUTION WIDTH 13.1 % (11.5-14.5); WHITE BLOOD COUNT W/O DIFF 9.9 K/uL (4.2-12.2)
--- NOTE | 2018-08-05 12:58 | Emergency Department Record ---
History of Present Illness - General Chief Complaint: Wound, check Stated Complaint: NEEDS ROCEPHIN Time Seen by Provider: 08/05/18 12:28 Source: Patient Mode of arrival: Ambulatory Limitations: No limitations - History of Present Illness Initial Comments: The patient is here due to having a L foot and 1st toe infection for the last 3 days. He was seen here in the ER about 12 hours ago and was diagnosed with Cellulitis and had an IV dose of Rocephin. The patient is now here for recheck. He states the foot and toe feel about the same. There has been no hx of trauma, injury, fever or chills. Complaint: Wound re-check Onset/Timin -: Days(s) Initial Visit For: Other Returns Today for: Wound recheck Symptoms Since Prior Visit: Worsening pain, Worsening redness - Related Data Home Medications Medication Instructions Recorded Confirmed Last Taken Ascorbic Acid [Vitamin C] 1,000 mg PO DAILY 08/05/18 08/05/18 08/05/18 Allergies Allergy/AdvReac Type Severity Reaction Status Date / Time shrimp Allergy ANAPHYLAXIS Verified 12/03/16 18:07 Travel Screening - Travel/Exposure Within Last 30 Days Have you traveled within the last 30 days?: No - Travel/Exposure Within Last Year Have you traveled outside the [place] in the last year?: No - Additonal Travel Details Have you been exposed to anyone with a communicable illness?: No - Travel Symptoms Symptom Screening: None Review of Systems Constitutional: Denies: Chills, Fever Eyes: Denies: Eye discharge ENT: Denies: Congestion Respiratory: Denies: Cough, Dyspnea Past Medical History - SOCIAL HISTORY Smoking Status: Current every day smoker Alcohol Use: None Drug Use: Rare Drug Use Detail:: Marijuana - RESPIRATORY Hx Respiratory Disorders: Yes Hx Pneumonia: Yes - CARDIOVASCULAR Hx Cardio Disorders: Yes Hx Hypertension: Yes - NEURO Hx Neuro Disorders: Yes Hx Brain Tumor: Yes Hx Seizures: Yes - GI Hx GI Disorders: No - Hx Genitourinary Disorders: No - ENDOCRINE Hx Endocrine Disorders: No - MUSCULOSKELETAL Hx Musculoskeletal Disorders: Yes Hx Back Injury: Yes - PSYCH Hx Psych Problems: Yes Hx Anxiety: Yes Hx Depression: Yes - HEMATOLOGY/ONCOLOGY Hx Hematology/Oncology Disorders: No Family Medical History Any Significant Family History?: No Hx Cancer: Grandparents Hx Diabetes: Mother Physical Exam - General General Appearance: Alert, Cooperative, No acute distress - Head Head exam: Atraumatic, Normocephalic, Normal inspection - Eye Eye exam: Normal appearance, PERRL - Extremities Extremities exam: Tenderness (L dorsal distal foot and 1st toe. There is mild erythema to the distal and mid foot dorsally.). negative: Normal inspection ( There is erythema to the dorsal L 1st toe with tenderness and slight edema. There is no abscess or parynychia. ) - Neurological Neurological exam: Alert. negative: Motor sensory deficit Course Vital Signs 08/05/18 12:13 Temperature 98.3 F Pulse Rate 106 H Respiratory 20 Rate Blood Pressure 180/128 Pulse Ox 98 - Reevaluation(s) Reevaluation #1: The patient is doing a lot better at this time. His pain is much improved and his BP improved. I did explain the need for a last dose of IV Abx's tonight and if not better this evening he will need to be admitted. 08/05/18 13:38 Medical Decision Making - Data Complexity MDM Data: Labs Ordered and/or Reviewed, Review and Summary of Old Record Discussed - Lab Data Result diagrams: 08/05/18 12:45 08/05/18 12:45 Disposition Disposition: Discharge Clinical Impression: Cellulitis Qualifiers: Site of cellulitis: unspecified site Qualified Code(s): L03.90 - Cellulitis, unspecified Disposition: Home, Self-Care Condition: (2) Stable Instructions: Cellulitis (ED) Additional Instructions: Please elevate the foot as much as possible and use a warm compress on it every hour for 20 minutes. Take your home pain medicines if needed and return to the ER at midnight for recheck. Forms: Patient Portal Access Time of Disposition: 13:37 Quality - Quality Measures Quality Measures: N/A - Blood Pressure Screening View Details: Yes Does Patient Have Any of the Following: No Blood Pressure Classification: Hypertensive Reading Systolic Measurement: 153 Diastolic Measurement: 114 Screening for High Blood Pressure: < First Hypertensive BP, F/U Documented > [ G8950] First Hypertensive Follow-up Interventions: Referral to alternative/primary care provider.
[2018-08-05 13:07] LABS: BLOOD UREA NITROGEN 12 mg/dL (6-20)
[2018-08-05 13:08] LABS: CREATININE 0.7 mg/dL (0.7-1.2); EST GLOMERULAR FILTRATION RATE > 60 mL/min
[2018-08-05 13:10] LABS: GLUCOSE,RANDOM 90 mg/dL (74-109)
[2018-08-05 13:13] LABS: C-REACTIVE PROTEIN 1.32 mg/dL (<0.5)
--- NOTE | 2018-08-05 16:04 | Emergency Department Record ---
History of Present Illness - General Chief Complaint: Wound, check Stated Complaint: NEEDS ROCEPHIN Time Seen by Provider: 08/05/18 12:28 Source: Patient Mode of arrival: Ambulatory Limitations: No limitations - History of Present Illness Onset/Timin -: Days(s) Initial Visit For: Other Returns Today for: Wound recheck Symptoms Since Prior Visit: Worsening pain, Worsening redness - Related Data Home Medications Medication Instructions Recorded Confirmed Last Taken Ascorbic Acid [Vitamin C] 1,000 mg PO DAILY 08/05/18 08/05/18 08/05/18 Allergies Allergy/AdvReac Type Severity Reaction Status Date / Time shrimp Allergy ANAPHYLAXIS Verified 12/03/16 18:07 Travel Screening - Travel/Exposure Within Last 30 Days Have you traveled within the last 30 days?: No - Travel/Exposure Within Last Year Have you traveled outside the [place] in the last year?: No - Additonal Travel Details Have you been exposed to anyone with a communicable illness?: No - Travel Symptoms Symptom Screening: None Review of Systems Constitutional: Denies: Chills, Fever Eyes: Denies: Eye discharge ENT: Denies: Congestion Respiratory: Denies: Cough, Dyspnea Past Medical History - SOCIAL HISTORY Smoking Status: Current every day smoker Alcohol Use: None Drug Use: Rare Drug Use Detail:: Marijuana - RESPIRATORY Hx Respiratory Disorders: Yes Hx Pneumonia: Yes - CARDIOVASCULAR Hx Cardio Disorders: Yes Hx Hypertension: Yes - NEURO Hx Neuro Disorders: Yes Hx Brain Tumor: Yes Hx Seizures: Yes - GI Hx GI Disorders: No - Hx Genitourinary Disorders: No - ENDOCRINE Hx Endocrine Disorders: No - MUSCULOSKELETAL Hx Musculoskeletal Disorders: Yes Hx Back Injury: Yes - PSYCH Hx Psych Problems: Yes Hx Anxiety: Yes Hx Depression: Yes - HEMATOLOGY/ONCOLOGY Hx Hematology/Oncology Disorders: No Family Medical History Any Significant Family History?: No Hx Cancer: Grandparents Hx Diabetes: Mother Physical Exam - General Limitations: No limitations Course Vital Signs 08/05/18 08/05/18 08/05/18 12:13 13:21 13:35 Temperature 98.3 F Pulse Rate 106 H Pulse Rate [ 96 H Pulse Ox Probe] Respiratory 20 16 Rate Blood Pressure 180/128 Blood Pressure 154/112 145/103 [Right Arm] Pulse Ox 98 94 L 08/05/18 13:53 Temperature Pulse Rate 102 H Pulse Rate [ Pulse Ox Probe] Respiratory 20 Rate Blood Pressure 153/114 Blood Pressure [Right Arm] Pulse Ox 95 Medical Decision Making - Lab Data Result diagrams: 08/05/18 12:45 08/05/18 12:45 Lab Results 08/05/18 08/05/18 Range/Units 12:45 12:45 WBC 9.9 (4.2-12.2) K/uL RBC 4.84 (4.40-5.70) M/uL Hgb 15.3 (14.0-18.0) gm/dl Hct 45.8 (42.0-52.0) % MCV 94.6 (81-97) fl MCH 31.6 (27-33) pg MCHC 33.4 (32-36) g/dl RDW 13.1 (11.5-14.5) % Plt Count 152 (130-400) K/uL MPV 9.7 (7.4-10.4) fl Gran % 71.8 (47-80) % Lymphocytes % 15.1 L (16-45) % Monocytes % 10.8 H (0-9) % Eosinophils % 2.0 (0-6) % Basophils % 0.3 (0-6) % Sodium 143 (136-145) mmol/L Potassium 4.0 (3.4-4.5) mmol/L Chloride 100 (98-107) mmol/L Carbon Dioxide 28.0 (22-29) mmol/L Anion Gap 15.0 (7-16) BUN 12 (6-20) mg/dL Creatinine 0.7 (0.7-1.2) mg/dL Estimated GFR > 60 mL/min Random Glucose 90 (74-109) mg/dL Calcium 10.2 H (8.6-10.0) mg/dL C-Reactive Protein 1.32 H (<0.5) mg/dL Disposition Clinical Impression: Cellulitis of right foot Cellulitis Qualifiers: Site of cellulitis: unspecified site Qualified Code(s): L03.90 - Cellulitis, unspecified Disposition: Home, Self-Care Condition: (2) Stable Instructions: Cellulitis (ED) Additional Instructions: Please elevate the foot as much as possible and use a warm compress on it every hour for 20 minutes. Take your home pain medicines if needed and return to the ER at midnight for recheck. Forms: Patient Portal Access Quality - Quality Measures Quality Measures: N/A - Blood Pressure Screening View Details: Yes Does Patient Have Any of the Following: No Blood Pressure Classification: Hypertensive Reading Systolic Measurement: 153 Diastolic Measurement: 114 Screening for High Blood Pressure: < First Hypertensive BP, F/U Documented > [ G8950] First Hypertensive Follow-up Interventions: Referral to alternative/primary care provider.
== END 2018-08-05 13:54 | disposition home or self-care (01) ==
LOC: ER 12:02
DX: L03.115 Cellulitis of right lower limb (principal); I10 Essential (primary) hypertension; F17.210 Nicotine dependence, cigarettes, uncomplicated
CPT/HCPCS: 80048; 85025; 86140; 96365; 96366; 96368; 96375; 99282; J1200

== ENCOUNTER 2018-08-05 23:24 | Emergency (ER) | payer BC ==
[2018-08-05] MEDS ORDERED: CLINDAMYCIN 600MG/50ML PREMIX 600 MG/50 ML BAG IVPB ONE (23:43)
[2018-08-05] MEDS ORDERED: DIPHENHYDRAMINE HCL 50 MG/ML VIAL IVP ONE (23:44)
[2018-08-06 00:02] LABS: BASO % 0.3 % (0-6); EOS % 1.3 % (0-6); GRAN % 70.6 % (47-80); HEMATOCRIT 45.1 % (42.0-52.0); HEMOGLOBIN 15.5 gm/dl (14.0-18.0); LYMPH % 18.7 % (16-45); MEAN CELL VOLUME 92.6 fl (81-97); MEAN CORPUSCULAR HEMOGLOBIN 31.8 pg (27-33); MEAN CORPUSCULAR HGB CONC 34.4 g/dl (32-36); MEAN PLATELET VOLUME 9.5 fl (7.4-10.4); MONO % 9.1 % (0-9); PLATELET COUNT 166 K/uL (130-400); RED BLOOD COUNT 4.87 M/uL (4.40-5.70); RED CELL DISTRIBUTION WIDTH 13.1 % (11.5-14.5); WHITE BLOOD COUNT W/O DIFF 9.3 K/uL (4.2-12.2)
--- NOTE | 2018-08-06 00:45 | Emergency Department Record ---
History of Present Illness - General Chief Complaint: Recheck - Other Stated Complaint: RECHECK Time Seen by Provider: 08/05/18 23:40 Source: Patient, Family Mode of arrival: Ambulatory Limitations: No limitations - History of Present Illness Initial Comments: pt was here last night and again today for iv abx for cellulitis of foot. it looks slightly better with less extension up the leg and increased erythema of the toe. Complaint: Needs IV antibiotics, Wound re-check Onset/Timin -: Days(s) Initial Visit For: Cellulitis Returns Today for: Needs IV antibiotics Symptoms Since Prior Visit: Improved Associated Symptoms: None - Related Data Home Medications Medication Instructions Recorded Confirmed Last Taken Sulfamethoxazole/Trimethoprim 1 each PO BID 08/05/18 08/05/18 Unknown [Bactrim Ds Tablet] Previous Rx's Medication Instructions Recorded Clindamycin HCl 150 mg PO Q8HR #30 capsule 08/06/18 Clindamycin HCl [Cleocin HCl] 300 mg PO Q8HR #30 capsule 08/06/18 Allergies Allergy/AdvReac Type Severity Reaction Status Date / Time shrimp Allergy ANAPHYLAXIS Verified 12/03/16 18:07 Travel Screening - Travel/Exposure Within Last 30 Days Have you traveled within the last 30 days?: No Review of Systems Reviewed: No additional complaints except as noted below Constitutional: Reports: As per HPI. Denies: Chills, Fever, Malaise, Night sweats, Weakness, Weight change Eyes: Reports: As per HPI. Denies: Eye discharge, Eye pain, Photophobia, Vision change ENT: Reports: As per HPI. Denies: Congestion, Dental pain, Ear pain, Epistaxis , Hearing loss, Throat pain Respiratory: Reports: As per HPI. Denies: Cough, Dyspnea, Hemoptysis, Stridor, Wheezes Cardiovascular: Reports: As per HPI. Denies: Arrhythmia, Chest pain, Dyspnea on exertion, Edema, Murmurs, Orthopnea, Palpitations, Paroxysmal nocturnal dyspnea, Rheumatic Fever, Syncope Endocrine: Reports: As per HPI. Denies: Fatigue, Heat or cold intolerance, Polydipsia, Polyuria Gastrointestinal: Reports: As per HPI. Denies: Abdominal pain, Constipation, Diarrhea, Hematemesis, Hematochezia, Melena, Nausea, Vomiting Genitourinary: Reports: As per HPI. Denies: Dysuria, Frequency, Hematuria, Incontinence, Retention, Testicular pain, Testicular mass, Urgency Musculoskeletal: Reports: As per HPI, Other. Denies: Arthralgia, Back pain, Gout, Joint swelling, Myalgia, Neck pain Skin: Reports: As per HPI. Denies: Bruising, Change in color, Change in hair/ nails, Lesions, Pruritus, Rash Neurological: Reports: As per HPI. Denies: Abnormal gait, Confusion, Headache, Numbness, Paresthesias, Seizure, Tingling, Tremors, Vertigo, Weakness Psychiatric: Reports: As per HPI. Denies: Anxiety, Auditory hallucinations, Depression, Homicidal thoughts, Suicidal thoughts, Visual hallucinations Hematological/Lymphatic: Reports: As per HPI. Denies: Anemia, Blood Clots, Easy bleeding, Easy bruising, Swollen glands Past Medical History - SOCIAL HISTORY Smoking Status: Current every day smoker Alcohol Use: None Drug Use: None - RESPIRATORY Hx Respiratory Disorders: Yes Hx Pneumonia: Yes - CARDIOVASCULAR Hx Cardio Disorders: Yes Hx Hypertension: Yes - NEURO Hx Neuro Disorders: Yes Hx Brain Tumor: Yes Hx Seizures: Yes - GI Hx GI Disorders: No - Hx Genitourinary Disorders: No - ENDOCRINE Hx Endocrine Disorders: No - MUSCULOSKELETAL Hx Musculoskeletal Disorders: Yes Hx Back Injury: Yes - PSYCH Hx Psych Problems: Yes Hx Anxiety: Yes Hx Depression: Yes - HEMATOLOGY/ONCOLOGY Hx Hematology/Oncology Disorders: No Family Medical History Any Significant Family History?: Yes Hx Cancer: Grandparents Hx Diabetes: Mother Physical Exam - General General Appearance: Alert, Oriented x3, Cooperative, Mild distress - Head Head exam: Normal inspection - Eye Eye exam: Normal appearance, PERRL, EOMI Pupils: Normal accommodation - ENT ENT exam: Normal exam, Mucous membranes moist, Normal external ear exam, Normal orophraynx Ear exam: Normal external inspection. negative: External canal tenderness Nasal Exam: Normal inspection. negative: Discharge, Sinus tenderness Mouth exam: Normal external inspection, Tongue normal Teeth exam: Normal inspection. negative: Dental caries Throat exam: Normal inspection. negative: Tonsillar erythema, Tonsillar exudate - Neck Neck exam: Normal inspection, Full ROM. negative: Tenderness - Respiratory Respiratory exam: Normal lung sounds bilaterally. negative: Respiratory distress - Cardiovascular Cardiovascular Exam: Regular rate, Normal rhythm, Normal heart sounds - GI/Abdominal GI/Abdominal exam: Soft, Normal bowel sounds. negative: Tenderness - Rectal Rectal exam: Deferred - exam: Deferred - Extremities Extremities exam: Normal inspection, Full ROM, Normal capillary refill, Tenderness Image of Feet: 1 - erythema, swelling, tenderness - Back Back exam: Reports: Normal inspection, Full ROM. Denies: Muscle spasm, Rash noted, Tenderness - Neurological Neurological exam: Alert, CN II-XII intact, Normal gait, Oriented X3 - Psychiatric Psychiatric exam: Normal affect, Normal mood - Skin Skin exam: Dry, Intact, Normal color, Warm Course Vital Signs 08/05/18 23:29 Temperature 98.8 F Pulse Rate [ 103 H Pulse Ox Probe] Respiratory 24 Rate Blood Pressure 156/118 [Left Arm] Pulse Ox 97 - Reevaluation(s) Reevaluation #1: 08/06/18 00:48 streaking up leg has improved, toe has slightly increased erythema and swelling , dorsum of foot has improved Reevaluation #2: 08/06/18 00:51 possible admission was d/w pt. he really wants to try one more dose of abx and come back for a recheck to check progression. Medical Decision Making - Lab Data Result diagrams: 08/05/18 23:55 Lab Results 08/05/18 Range/Units 23:55 WBC 9.3 (4.2-12.2) K/uL RBC 4.87 (4.40-5.70) M/uL Hgb 15.5 (14.0-18.0) gm/dl Hct 45.1 (42.0-52.0) % MCV 92.6 (81-97) fl MCH 31.8 (27-33) pg MCHC 34.4 (32-36) g/dl RDW 13.1 (11.5-14.5) % Plt Count 166 (130-400) K/uL MPV 9.5 (7.4-10.4) fl Gran % 70.6 (47-80) % Lymphocytes % 18.7 (16-45) % Monocytes % 9.1 H (0-9) % Eosinophils % 1.3 (0-6) % Basophils % 0.3 (0-6) % Disposition Disposition: Discharge Clinical Impression: Cellulitis Qualifiers: Site of cellulitis: extremity Site of cellulitis of extremity: toe Laterality: right Qualified Code(s): L03.031 - Cellulitis of right toe Disposition: Home, Self-Care Condition: (1) Good Instructions: Cellulitis (ED) Additional Instructions: recheck in 8 hours. return sooner if worse. elevate foot. warm soaks 4 times a day. stop bactrim. Prescriptions: Clindamycin HCl 150 mg PO Q8HR #30 capsule Clindamycin HCl [Cleocin HCl] 300 mg PO Q8HR #30 capsule Quality - Quality Measures Quality Measures: N/A - Blood Pressure Screening Does Patient Have Any of the Following: Active Dx of HTN Blood Pressure Classification: Hypertensive Reading Systolic Measurement: 156 Diastolic Measurement: 118 Screening for High Blood Pressure: Patient Exclusion, Hx of HTN [G9744]
== END 2018-08-06 01:14 | disposition home or self-care (01) ==
LOC: ER 23:24
DX: L03.115 Cellulitis of right lower limb (principal); I10 Essential (primary) hypertension; F17.210 Nicotine dependence, cigarettes, uncomplicated
CPT/HCPCS: J1200

== ENCOUNTER 2019-05-19 09:08 | Emergency (ER) | payer BC ==
[2019-05-19] MEDS ORDERED: KETOROLAC 30 MG/ML VIAL IVP ONE (09:23)
[2019-05-19] MEDS ORDERED: ACETAMINOPHEN 1,000 MG/100 ML BTL IVPB ONE (09:30)
--- NOTE | 2019-05-19 09:30 | Emergency Department Record ---
History of Present Illness - General Chief Complaint: Neck Injury/Pain Stated Complaint: MORROW/HIGH BP Time Seen by Provider: 05/19/19 09:16 Source: Patient Mode of Arrival: Ambulatory Limitations: No limitations - History of Present Illness Initial Comments: The patient is here due to R sided neck pain for 3 days. He denies any injury or trauma but states the pain does shoot down the R arm at times with neck rotation. He denies any fever, chills, arm numbness or weakness but does have a MORROW from the neck pain. The patient clearly states turning the head to the R does increase the neck pain. He also found his BP to be elevated today and he does have a hx of HTN but presently is not taking any medicine for it. He has been on Lisinopril 40 mg daily but stopped it last week. MD Complaint: Neck pain Onset/Timin -: Days(s) - Related Data Allergies Allergy/AdvReac Type Severity Reaction Status Date / Time No Known Allergies Allergy Unverified 05/05/19 13:43 Travel Screening - Travel/Exposure Within Last 30 Days Have you traveled within the last 30 days?: No - Travel/Exposure Within Last Year Have you traveled outside the [place] in the last year?: No - Additonal Travel Details Have you been exposed to anyone with a communicable illness?: No - Travel Symptoms Symptom Screening: None Review of Systems Constitutional: Denies: Chills, Fever Eyes: Denies: Eye discharge ENT: Denies: Congestion Respiratory: Denies: Cough, Dyspnea Cardiovascular: Denies: Chest pain Endocrine: Denies: Fatigue Past Medical History - SOCIAL HISTORY Smoking Status: Current every day smoker Alcohol Use: None Drug Use: None - RESPIRATORY Hx Respiratory Disorders: Yes Hx Pneumonia: Yes - CARDIOVASCULAR Hx Cardio Disorders: Yes Hx Hypertension: Yes - NEURO Hx Neuro Disorders: Yes Hx Brain Tumor: Yes Hx Seizures: Yes - GI Hx GI Disorders: No - Hx Genitourinary Disorders: No - ENDOCRINE Hx Endocrine Disorders: No - MUSCULOSKELETAL Hx Musculoskeletal Disorders: Yes Hx Back Injury: Yes - PSYCH Hx Psych Problems: Yes Hx Anxiety: Yes Hx Depression: Yes - HEMATOLOGY/ONCOLOGY Hx Hematology/Oncology Disorders: No Family Medical History Any Significant Family History?: No Hx Cancer: Grandparents Hx Diabetes: Mother Physical Exam - General General Appearance: Alert, Oriented x3, Cooperative, No acute distress - Head Head exam: Atraumatic, Normocephalic, Normal inspection - Eye Eye exam: Normal appearance, PERRL, EOMI - Neck Neck exam: Normal inspection, Tenderness (There is tenderness to the R lateral cervical area which does reproduce the patient's pain. The patient also is reproduced with any neck flexion or rotation.). negative: Full ROM, Meningismus - Respiratory Respiratory exam: Normal lung sounds bilaterally. negative: Respiratory distress - Cardiovascular Cardiovascular Exam: Regular rate, Normal rhythm, Normal heart sounds - GI/Abdominal GI/Abdominal exam: Soft, Normal bowel sounds. negative: Tenderness - Extremities Extremities exam: Normal inspection, Full ROM (The patient has full ROM of the R shoulder with no pain or discomfort. ), Normal capillary refill. negative: Tenderness Image of Full Body: 1 - Area of pain and 100% reproducible tenderness. - Neurological Neurological exam: Alert, Normal gait, Oriented X3, Reflexes normal. negative: Abnormal gait, Altered, Motor sensory deficit (Motor and sensory are 5/5 bilaterally.) Course Vital Signs 05/19/19 09:11 Temperature 97.7 F Pulse Rate 86 Respiratory 18 Rate Blood Pressure 187/143 Pulse Ox 95 - Reevaluation(s) Reevaluation #1: The patient is doing better at this time but is still having significant pain over the R side of the neck. His BP was improved with the pain medicine but due to it still being elevated we did start him on oral Clonidine. We will try some Dilaudid for pain and the patient does have an appointment with his PCP in 3 hours here in the [facility] area. 05/19/19 10:40 Reevaluation #2: The patient is doing a lot better at this time. His neck pain has resolved and he denies any MORROW, neck pain, arm or leg numbness or tingling. On recheck his BP is 165/121. Due to the persistently elevated BP we will consult with his PCP regarding further treatment. 05/19/19 11:14 Reevaluation #3: I did discuss the case with the patient's PCP Dr. Cole. She states she would like the patient to restart his Lisinopril which he stopped last week. I also did discuss the plan to give the patient 2 [place] for home and then due to the BP being improved but still mildly elevated Dr. Cole will recheck the patient at 3pm today. Dr. Cole does state the patient's BP is often elevated in the 150's/115 range similar to what it is now and she will recheck it this after noon. 05/19/19 12:22 Medical Decision Making - Data Complexity MDM Data: X-Ray Ordered and/or Reviewed - Lab Data Result diagrams: 05/19/19 09:30 05/19/19 09:30 - Radiology Data Radiology results: Report reviewed (Cervical CT: Neg for any acute changes.) Disposition Disposition: Discharge Clinical Impression: Neck pain on right side Disposition: Home, Self-Care Condition: (2) Stable Instructions: Cervical Sprain (ED), Hypertension (ED) Additional Instructions: Please take the [place] as directed and please see Dr. Cole today at 3pm as planned for further pain medicines and to recheck your blood pressure. Return to the ER for any worsening symptoms. Forms: Patient Portal Access Time of Disposition: 12:27 Quality - Quality Measures Quality Measures: N/A - Blood Pressure Screening View Details: Yes Does Patient Have Any of the Following: Active Dx of HTN Blood Pressure Classification: Hypertensive Reading Systolic Measurement: 187 Diastolic Measurement: 143 Screening for High Blood Pressure: Patient Exclusion, Hx of HTN [G9744]
[2019-05-19 09:39] LABS: ABSOLUTE NEUTROPHIL COUNT 3.11; BASO % 0.9 % (0-6); EOS % 3.1 % (0-6); GRAN % 54.1 % (47-80); HEMATOCRIT 45.6 % (42.0-52.0); HEMOGLOBIN 15.5 gm/dl (14.0-18.0); LYMPH % 31.8 % (16-45); MEAN CELL VOLUME 94.2 fl (81-97); MEAN PLATELET VOLUME 9.7 fl (7.4-10.4); MONO % 10.1 % (0-9); PLATELET COUNT 143 K/uL (130-400); RED BLOOD COUNT 4.84 M/uL (4.40-5.70); RED CELL DISTRIBUTION WIDTH 13.4 % (11.5-14.5); WHITE BLOOD COUNT W/O DIFF 5.8 K/uL (4.2-12.2)
[2019-05-19 09:48] LABS: BLOOD UREA NITROGEN 13 mg/dL (6-20); CREATININE 0.8 mg/dL (0.7-1.2); EST GLOMERULAR FILTRATION RATE > 60 mL/min; TOTAL PROTEIN 7.7 g/dL (6.6-8.7)
[2019-05-19 09:50] LABS: GLUCOSE,RANDOM 102 mg/dL (74-109)
[2019-05-19 09:53] LABS: ALB/GLOB RATIO 1.7 (1.1-1.8); ALBUMIN 4.8 g/dL (4.0-5.0); ALKALINE PHOSPHATASE 75 U/L (40-129); ALT/SGPT 46 U/L (<41); AST/SGOT 31 U/L (10.0-50.0)
[2019-05-19] MEDS ORDERED: CLONIDINE HCL 0.1 MG TABLET PO ONE (10:12)
[2019-05-19] MEDS ORDERED: ONDANSETRON HCL IV 4 MG/2 ML VIAL IVP ONE (10:40)
[2019-05-19] MEDS ORDERED: HYDROMORPHONE HCL 2 MG/ML VIAL IVP ONE (10:40)
[2019-05-19 11:54] LABS: URINE APPEARANCE CLEAR; URINE BILIRUBIN NEGATIVE (NEGATIVE); URINE BLOOD NEGATIVE (NEGATIVE); URINE COLOR YELLOW; URINE GLUCOSE (UA) NEGATIVE (NEGATIVE); URINE KETONE TRACE (NEGATIVE); URINE LEUKOCYTE ESTERASE NEGATIVE (NEGATIVE); URINE NITRITE NEGATIVE (NEGATIVE); URINE PROTEIN NEGATIVE (NEGATIVE); URINE UROBILINOGEN 0.2 E.U./dL (0.20 - 1.00)
[2019-05-19 11:59] LABS: AMPHETAMINE SCREEN URINE NOT DETECTED; BARBITURATE SCREEN URINE NOT DETECTED; BENZODIAZEPINE SCREEN URINE NOT DETECTED; COCAINE SCREEN URINE NOT DETECTED; METHADONE SCREEN URINE NOT DETECTED; METHAMPHETAMINE SCREEN NOT DETECTED; OPIATE SCREEN URINE NOT DETECTED; OXYCODONE SCREEN URINE NOT DETECTED; PHENCYCLIDINE SCREEN URINE NOT DETECTED; PROPOXYPHENE SCREEN URINE NOT DETECTED; THC SCREEN URINE NOT DETECTED; TRICYCLIC ANTIDEPRESSANT SCRN NOT DETECTED
[2019-05-19] MEDS ORDERED: LISINOPRIL 20 MG TABLET PO ONE (12:19)
[2019-05-19] MEDS ORDERED: HYDROCODONE/APAP 5/325MG TABLET PO ONE (12:25)
--- NOTE | 2019-05-20 16:28 | RADIOLOGY REPORT ---
DATE: 05/19/2019 at 0940. EXAM: CERVICAL SPINE, COMPLETE. HISTORY: RIGHT-SIDED NECK PAIN RADIATING INTO HEAD BEGINNING THREE DAYS AGO. TECHNIQUE: AP, lateral, and both oblique views of the cervical spine are obtained as well as odontoid views. COMPARISON: CT scan of the head without contrast dated 10/31/2017. FINDINGS: The body of C7 and the odontoid process are visualized. There is straightening of the normal cervical lordosis likely due to positioning or muscle spasm. Mild levoconvex curvature centered at the cervicothoracic junction is age indeterminate. No acute fracture, destructive bone lesion, nor prevertebral soft tissue swelling. Mild multilevel degenerative disc/endplate changes are identified, most pronounced at the C4-C5 level. Minor multilevel bilateral facet arthropathy. No gross neural foraminal narrowing. Post-craniotomy changes are noted within the occipital region, centered left of midline. IMPRESSION: 1. NO ACUTE OSSEOUS OR LIGAMENTOUS ABNORMALITY. 2. STRAIGHTENING OF THE NORMAL CERVICAL LORDOSIS LIKELY DUE TO POSITIONING OR MUSCLE SPASM. 3. MINOR MULTILEVEL DEGENERATIVE CHANGES. Job Number: [id number] [facility]
== END 2019-05-19 12:36 | disposition home or self-care (01) ==
LOC: ER 09:08
DX: M54.2 Cervicalgia (principal); I10 Essential (primary) hypertension; M79.601 Pain in right arm; R51 Headache; F17.210 Nicotine dependence, cigarettes, uncomplicated
CPT/HCPCS: 72050; 80053; 80305; 81003; 85025; 86140; 96365; 96375; 99284; J1885; J2405

== ENCOUNTER 2019-05-20 12:07 | Emergency (ER) | payer BC ==
[2019-05-20 13:02] LABS: ABSOLUTE NEUTROPHIL COUNT 2.55; BASO % 0.6 % (0-6); EOS % 4.3 % (0-6); GRAN % 51.7 % (47-80); HEMATOCRIT 48.2 % (42.0-52.0); HEMOGLOBIN 16.2 gm/dl (14.0-18.0); LYMPH % 33.3 % (16-45); MEAN CELL VOLUME 94.1 fl (81-97); MEAN CORPUSCULAR HEMOGLOBIN 31.6 pg (27-33); MEAN CORPUSCULAR HGB CONC 33.6 g/dl (32-36); MEAN PLATELET VOLUME 9.6 fl (7.4-10.4); MONO % 10.1 % (0-9); PLATELET COUNT 156 K/uL (130-400); RED BLOOD COUNT 5.12 M/uL (4.40-5.70); RED CELL DISTRIBUTION WIDTH 13.5 % (11.5-14.5); WHITE BLOOD COUNT W/O DIFF 4.9 K/uL (4.2-12.2)
[2019-05-20 13:16] LABS: BLOOD UREA NITROGEN 11 mg/dL (6-20); CREATININE 0.7 mg/dL (0.7-1.2); EST GLOMERULAR FILTRATION RATE > 60 mL/min
[2019-05-20 13:17] LABS: TOTAL PROTEIN 8.2 g/dL (6.6-8.7)
[2019-05-20 13:19] LABS: GLUCOSE,RANDOM 94 mg/dL (74-109)
[2019-05-20 13:22] LABS: ALB/GLOB RATIO 1.6 (1.1-1.8); ALBUMIN 5.1 g/dL (4.0-5.0); ALKALINE PHOSPHATASE 78 U/L (40-129); ALT/SGPT 41 U/L (<41); AST/SGOT 25 U/L (10.0-50.0)
[2019-05-20] MEDS ORDERED: KETOROLAC 30 MG/ML VIAL IVP ONE (13:41)
[2019-05-20] MEDS ORDERED: DIAZEPAM (VALIUM) 5MG/ML **10ML VIAL IVP ONE (13:42)
--- NOTE | 2019-05-20 14:11 | Emergency Department Record ---
History of Present Illness - General Chief Complaint: Neck Injury/Pain Stated Complaint: NECK PAIN Time Seen by Provider: 05/20/19 12:12 Source: Patient Mode of Arrival: Ambulatory - History of Present Illness Initial Comments: pt was here yesterday for r neck/shoulder pain and htn. he was also seen by his family dr stringer. pt is back today c/o increased pain and stating its more in the middle of his neck and upper back. he denies known injury but states he has a hx of seizures. he denies numbness MD Complaint: Neck pain Onset/Timin -: Days(s) Radiation: Right lateral Severity: Mild Quality: Aching Consistency: Constant Worsens With: Movement of neck - Related Data Previous Rx's Medication Instructions Recorded Cyclobenzaprine HCl [Flexeril] 5 mg PO TID #10 tab 05/20/19 Ibuprofen [Motrin 600Mg] 600 mg PO Q6H #20 tablet 05/20/19 Allergies Allergy/AdvReac Type Severity Reaction Status Date / Time No Known Allergies Allergy none Unverified 05/20/19 12:22 Travel Screening - Travel/Exposure Within Last 30 Days Have you traveled within the last 30 days?: No - Travel/Exposure Within Last Year Have you traveled outside the [place] in the last year?: No - Additonal Travel Details Have you been exposed to anyone with a communicable illness?: No - Travel Symptoms Symptom Screening: None Review of Systems Reviewed: No additional complaints except as noted below Constitutional: Reports: As per HPI. Denies: Chills, Fever, Malaise, Night sweats, Weakness, Weight change Eyes: Reports: As per HPI. Denies: Eye discharge, Eye pain, Photophobia, Vision change ENT: Reports: As per HPI. Denies: Congestion, Dental pain, Ear pain, Epistaxis, Hearing loss, Throat pain Respiratory: Reports: As per HPI. Denies: Cough, Dyspnea, Hemoptysis, Stridor, Wheezes Cardiovascular: Reports: As per HPI. Denies: Arrhythmia, Chest pain, Dyspnea on exertion, Edema, Murmurs, Orthopnea, Palpitations, Paroxysmal nocturnal dyspnea, Rheumatic Fever, Syncope Endocrine: Reports: As per HPI. Denies: Fatigue, Heat or cold intolerance, Polydipsia, Polyuria Gastrointestinal: Reports: As per HPI. Denies: Abdominal pain, Constipation, Diarrhea, Hematemesis, Hematochezia, Melena, Nausea, Vomiting Genitourinary: Reports: As per HPI. Denies: Dysuria, Frequency, Hematuria, Incontinence, Retention, Testicular pain, Testicular mass, Urgency Musculoskeletal: Reports: As per HPI. Denies: Arthralgia, Back pain, Gout, Joint swelling, Myalgia, Neck pain Skin: Reports: As per HPI. Denies: Bruising, Change in color, Change in hair/nails, Lesions, Pruritus, Rash Neurological: Reports: As per HPI. Denies: Abnormal gait, Confusion, Headache, Numbness, Paresthesias, Seizure, Tingling, Tremors, Vertigo, Weakness Psychiatric: Reports: As per HPI. Denies: Anxiety, Auditory hallucinations, Depression, Homicidal thoughts, Suicidal thoughts, Visual hallucinations Hematological/Lymphatic: Reports: As per HPI. Denies: Anemia, Blood Clots, Easy bleeding, Easy bruising, Swollen glands Past Medical History - SOCIAL HISTORY Smoking Status: Current every day smoker Alcohol Use: None Drug Use: None - RESPIRATORY Hx Respiratory Disorders: Yes Hx Pneumonia: Yes - CARDIOVASCULAR Hx Cardio Disorders: Yes Hx Hypertension: Yes - NEURO Hx Neuro Disorders: Yes Hx Brain Tumor: Yes Hx Seizures: Yes - GI Hx GI Disorders: No - Hx Genitourinary Disorders: No - ENDOCRINE Hx Endocrine Disorders: No - MUSCULOSKELETAL Hx Musculoskeletal Disorders: Yes Hx Back Injury: Yes - PSYCH Hx Psych Problems: Yes Hx Anxiety: Yes Hx Depression: Yes - HEMATOLOGY/ONCOLOGY Hx Hematology/Oncology Disorders: No Family Medical History Any Significant Family History?: No Hx Cancer: Grandparents Hx Diabetes: Mother Physical Exam - General General Appearance: Alert, Oriented x3, Cooperative, Mild distress - Head Head exam: Normal inspection - Eye Eye exam: Normal appearance, PERRL, EOMI Pupils: Normal accommodation - ENT ENT exam: Normal exam, Mucous membranes moist, Normal external ear exam, Normal orophraynx Ear exam: Normal external inspection. negative: External canal tenderness Nasal Exam: Normal inspection. negative: Discharge, Sinus tenderness Mouth exam: Normal external inspection, Tongue normal Teeth exam: Normal inspection. negative: Dental caries Throat exam: Normal inspection. negative: Tonsillar erythema, Tonsillar exudate - Neck Neck exam: Full ROM, Tenderness - Respiratory Respiratory exam: Normal lung sounds bilaterally. negative: Respiratory distress - Cardiovascular Cardiovascular Exam: Regular rate, Normal rhythm, Normal heart sounds - GI/Abdominal GI/Abdominal exam: Soft, Normal bowel sounds. negative: Tenderness - Rectal Rectal exam: Deferred - exam: Deferred - Extremities Extremities exam: Normal inspection, Full ROM, Normal capillary refill. negative: Tenderness - Back Back exam: Reports: Normal inspection, Full ROM. Denies: Muscle spasm, Rash noted, Tenderness - Neurological Neurological exam: Alert, Normal gait, Oriented X3, Reflexes normal - Psychiatric Psychiatric exam: Normal affect, Normal mood - Skin Skin exam: Dry, Intact, Normal color, Warm Course Vital Signs 05/20/19 12:13 Temperature 97.5 F L Pulse Rate 88 Respiratory 16 Rate Blood Pressure 183/128 Pulse Ox 94 L - Reevaluation(s) Reevaluation #1: 05/20/19 14:23 pt feels better Medical Decision Making - Lab Data Result diagrams: 05/20/19 12:55 05/20/19 12:55 Lab Results 05/20/19 05/20/19 Range/Units 12:55 12:55 WBC 4.9 (4.2-12.2) K/uL RBC 5.12 (4.40-5.70) M/uL Hgb 16.2 (14.0-18.0) gm/dl Hct 48.2 (42.0-52.0) % MCV 94.1 (81-97) fl MCH 31.6 (27-33) pg MCHC 33.6 (32-36) g/dl RDW 13.5 (11.5-14.5) % Plt Count 156 (130-400) K/uL MPV 9.6 (7.4-10.4) fl Gran % 51.7 (47-80) % Lymphocytes % 33.3 (16-45) % Monocytes % 10.1 H (0-9) % Eosinophils % 4.3 (0-6) % Basophils % 0.6 (0-6) % Absolute Neutrophils 2.55 Sodium 141 (136-145) mmol/L Potassium 4.1 (3.4-4.5) mmol/L Chloride 101 (98-107) mmol/L Carbon Dioxide 27.0 (22-29) mmol/L Anion Gap 13.0 (7-16) BUN 11 (6-20) mg/dL Creatinine 0.7 (0.7-1.2) mg/dL Estimated GFR > 60 mL/min Random Glucose 94 (74-109) mg/dL Calcium 10.0 (8.6-10.0) mg/dL Total Bilirubin 0.20 (0.2-1.0) mg/dL AST 25 (10.0-50.0) U/L ALT 41 (<41) U/L Alkaline Phosphatase 78 (40-129) U/L Total Protein 8.2 (6.6-8.7) g/dL Albumin 5.1 H (4.0-5.0) g/dL Globulin 3.1 (1.4-4.8) gm/dL Albumin/Globulin Ratio 1.6 (1.1-1.8) Disposition Disposition: Discharge Clinical Impression: Cervical radiculopathy Disposition: Home, Self-Care Condition: (1) Good Instructions: Cervical Radiculopathy (ED) Additional Instructions: follow up with family doctor this week. return sooner if worse. if symptoms continue have an MRI. moist heat to neck Prescriptions: Cyclobenzaprine HCl [Flexeril] 5 mg PO TID #10 tab Ibuprofen [Motrin 600Mg] 600 mg PO Q6H #20 tablet Forms: Patient Portal Access Quality - Quality Measures Quality Measures: N/A - Blood Pressure Screening Does Patient Have Any of the Following: Active Dx of HTN Blood Pressure Classification: Hypertensive Reading Systolic Measurement: 183 Diastolic Measurement: 128 Screening for High Blood Pressure: Patient Exclusion, Hx of HTN [G9744]
--- NOTE | 2019-05-22 18:27 | CT SCAN REPORT ---
EXAM: CT SCAN CERVICAL SPINE WO CONTRAST HISTORY: LEFT NECK PAIN. MILD IMPROVEMENT FROM YESTERDAY. THORACIC BACK PAIN. TECHNIQUE: Thin-collimation helical CT examination of the cervical spine is performed without intravenous contrast. Coronal and sagittal reformatted images are generated and reviewed. COMPARISON: Same-day noncontrast CT of the thoracic spine. Radiographic examination of the cervical spine dated 05/19/2019. FINDINGS: There is normal bone mineralization. There is straightening of the normal cervical lordosis, likely due to positioning or muscle spasm. The vertebral bodies are otherwise normal in alignment and height. No acute fracture nor prevertebral soft tissue swelling. No lytic or blastic bone lesion. No gross disc space narrowing. Minor anterior marginal endplate spurring is suggested at the C4-C5 and C5-C6 levels. No gross osseous cervical spinal stenosis is seen. The facet joints are grossly maintained. The cervical neural foramina are patent. There is possible minimal posterior disc bulging at the mid and lower cervical levels. No cervical mass nor adenopathy. Mild biapical lung scarring is present. Postsurgical changes are noted in the occipital bone left of midline, incompletely imaged. IMPRESSION: 1. STRAIGHTENING OF THE NORMAL CERVICAL LORDOSIS, LIKELY DUE TO POSITIONING OR MUSCLE SPASM. 2. NO FRACTURE, SUBLUXATION, OR PREVERTEBRAL SOFT TISSUE SWELLING. 3. MINOR ANTERIOR MARGINAL ENDPLATE SPURRING AT THE C3-C4 AND C4-C5 LEVELS. NO GROSS OSSEOUS CERVICAL SPINAL STENOSIS NOR NEURAL FORAMINAL NARROWING. POSSIBLE MINIMAL POSTERIOR DISC BULGING AT THE LOWER CERVICAL LEVELS. JOB NUMBER: [id number] [facility]
--- NOTE | 2019-05-22 18:36 | CT SCAN REPORT ---
EXAM: CT SCAN THORACIC SPINE WO CONTRAST HISTORY: LEFT NECK PAIN RADIATING INTO BACK. TECHNIQUE: Routine thin-collimation helical CT examination of the thoracic spine is performed without intravenous contrast. Coronal and sagittal reformatted images are generated and reviewed. COMPARISON: Two-view chest radiographic examination dated 02/17/2019. FINDINGS: Mild chronic superior endplate deformities including small Schmorl's nodes are noted from the T3 through T8 level. There is associated minor accentuation of the normal thoracic kyphosis. Minimal anterior wedging of T12 is identified. This also appears chronic and may be developmental. The vertebral bodies are otherwise normal in alignment and height. No acute fracture is seen. No suspicious lytic or blastic bone lesion. No gross osseous cervical spinal stenosis. There is a tiny disc spur complex at the T6-T7 level causing ventral sac flattening but without gross central canal stenosis. No osseous thoracic spinal stenosis. The thoracic neural foramina, to the extent visualized, are maintained. There are calcified lymph nodes scattered within the mediastinum and each hilum consistent with healed granulomatous disease. Minor dependent atelectasis within each lung. The adrenal glands are not enlarged. IMPRESSION: 1. NO ACUTE OSSEOUS OR LIGAMENTOUS ABNORMALITY. 2. MINOR CHRONIC SUPERIOR ENDPLATE DEFORMITIES WITH SCHMORL'S NODE FORMATION FROM THE T3 THROUGH T8 LEVEL. MINIMAL ANTERIOR WEDGING OF T12 IS ALSO CHRONIC AND POSSIBLY DEVELOPMENTAL. 3. TINY DISC SPUR COMPLEX AT THE T6-T7 LEVEL CAUSING MINIMAL VENTRAL SAC DEFORMITY BUT WITHOUT CENTRAL CANAL STENOSIS. 4. 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 [facility]: [id number] [facility]
== END 2019-05-20 14:35 | disposition home or self-care (01) ==
LOC: ER 12:07
DX: M54.12 Radiculopathy, cervical region (principal); M25.511 Pain in right shoulder; I10 Essential (primary) hypertension; F17.210 Nicotine dependence, cigarettes, uncomplicated
CPT/HCPCS: 72125; 72128; 80053; 85025; 96374; 96375; 99284; J1885; J3360